=== PATIENT | male | born 1965 | race Caucasian/White ===

== ENCOUNTER 2021-07-24 14:19 | Emergency (ER) | payer OTHER ==
[~2021-07-24] VITALS: Ht 180.3 cm; Wt 95.3 kg
[2021-07-24 14:26] VITALS: BP 135/91
[2021-07-24] MEDS ORDERED: HTN MEDS (14:30)
== END 2021-07-24 15:03 | disposition home or self-care (01) ==
LOC: M.ERS 14:19
DX: U07.1 COVID-19 (principal); I10 Essential (primary) hypertension